=== PATIENT | female | born 1975 | race African-American/Black ===

== ENCOUNTER 2017-09-25 15:51 | Observation (INO) | payer OTHER ==
[2017-09-25] MEDS ORDERED: cefTRIAXone\\ROCEPHIN 1 GM, Syringe 0.4 ML in Sterile Water 9.6 ML SLOW IVP SCH (16:30)
[2017-09-25] MEDS ORDERED: Azithromycin 500 MG in Sodium Chloride 0.9% 250 ML 250 ML IVPB SCH (16:30)
[2017-09-25] MEDS ORDERED: Nitroglycerin 2% Ointment 1 INCH/1 GM Packet TOP PRN (16:54)
[2017-09-25] MEDS ORDERED: Acetaminophen 650 MG Suppository PR PRN (16:54)
[2017-09-25] MEDS ORDERED: Nitroglycerin 0.4 MG TAB (25 Tab Bottle) PO PRN (16:54)
[2017-09-25] MEDS ORDERED: Acetaminophen 325 MG TAB PO PRN (16:54)
[2017-09-25] MEDS ORDERED: Ondansetron HCl/PF 4 MG/2 ML Vial IVP PRN (16:54)
[2017-09-25] MEDS ORDERED: Ondansetron ODT 4 MG TAB PO PRN (16:54)
[2017-09-25] MEDS ORDERED: Calcium Carbonate 500 MG ChewTAB PO PRN (16:54)
[2017-09-25 17:07] LABS: Troponin I Less than 0.010 ng/mL (< 0.028)
[2017-09-25] MEDS ORDERED: Ondansetron HCl/PF 4 MG/2 ML Vial ONE (17:40)
[2017-09-25] MEDS ORDERED: Albuterol Sulfate 2.5 mg/3 ml Neb NEB PRN (17:43)
[2017-09-25] MEDS ORDERED: Mag-Al 1200 mg/1200 mg/30 ML UDCUP PO PRN (17:44)
[2017-09-25] MEDS ORDERED: Mag-Al 1200 mg/1200 mg/30 ML UDCUP PO SCH (17:45)
[2017-09-25] MEDS ORDERED: Ketorolac Tromethamine 30 MG/ML VIAL IVP PRN (17:49)
[2017-09-25] MEDS ORDERED: diphenhydrAMINE 50 MG/ML VIAL IVP SCH (18:00)
[2017-09-25] MEDS ORDERED: Metoclopramide HCl 10 MG/2 ML VIAL IVP SCH (18:00)
[2017-09-25] MEDS ORDERED: Ketorolac Tromethamine 30 MG/ML VIAL IVP SCH (18:00)
[2017-09-25 18:42] VITALS: BMI 50.3
[2017-09-25 19:41] LABS: Hemoglobin A1c 5.4 % (4.0-6.0)
[2017-09-25] MEDS ORDERED: Simethicone Chewable 80 MG TAB PO PRN (19:48)
[2017-09-25] MEDS ORDERED: Morphine 4 MG/ML VIAL SLOW IVP PRN (19:52)
[2017-09-25 19:58] LABS: Troponin I Less than 0.010 ng/mL (< 0.028)
[2017-09-25] MEDS ORDERED: Fentanyl 100 MCG/2 ML VIAL SLOW IVP SCH (20:00)
[2017-09-25] MEDS: Mag-Al 1200 mg/1200 mg/30 ML UDCUP PO SCH (20:16)
[2017-09-25] MEDS: Docusate 100 MG CAP PO SCH (20:19)
[2017-09-25] MEDS: Acetaminophen 500 MG TAB PO PRN (20:20)
[2017-09-25] MEDS: Famotidine 20 MG TAB PO SCH (20:20)
[2017-09-25 22:39] LABS: Troponin I Less than 0.010 ng/mL (< 0.028)
[2017-09-26] MEDS: hydrALAZINE 20 MG/ML VIAL SLOW IVP PRN ×2 (00:44→04:36)
[2017-09-26] MEDS: Mag-Al 1200 mg/1200 mg/30 ML UDCUP PO SCH ×4 (02:18→20:48)
[2017-09-26] MEDS: Acetaminophen 500 MG TAB PO PRN ×2 (04:36→09:50)
[2017-09-26 05:43] LABS: ALT (SGPT) 29 U/L (8-55); AST (SGOT) 34 U/L (5-34); Alkaline Phosphatase 136 U/L (40-150); Anion Gap 12 mmol/L (10-20); BUN (Urea Nitrogen) 9 mg/dL (7.0-18.7); Bilirubin, Total 0.4 mg/dL (0.2-1.2); Calc. Creatinine Clearance 222 mL/min (70-130); Calcium 8.9 mg/dL (7.8-10.44); Carbon Dioxide 21 mmol/L (22-29); Chloride 106 mmol/L (98-107); Cholesterol 127 mg/dl (< 200 Desired); Estimated GFR-MDRD Greater than 90; Globulin 4.1 g/dL (2.4-3.5); LDL Cholesterol, Calculated 78 mg/dL; Protein, Total 7.6 g/dL (6.0-8.3)
[2017-09-26 06:22] LABS: Band 2 % (5-11); Burr Cells SLIGHT = 2-5 cells (100X) (0-1/hpf); Hematocrit 43.2 % (36.0-47.0); Metamyelocyte 1 % (0-0); Neutrophil 54 % (42-75); Reactive Lymphocytes 5 % (0-10); White Blood Cell (WBC) Count 4.1 thou/uL (4.8-10.8)
[2017-09-26] MEDS: Famotidine 20 MG TAB PO SCH ×2 (08:51→20:48)
[2017-09-26] MEDS: Docusate 100 MG CAP PO SCH ×2 (08:51→20:48)
[2017-09-26] MEDS: Aspirin 325 MG TAB PO SCH (08:51)
[2017-09-26] MEDS ORDERED: Lisinopril 10 MG TAB PO SCH (09:00)
--- NOTE | 2017-09-26 12:00 | HP-2 ---
DATA OF ENCOUNTER: 09/25/2017 TIME OF ENCOUNTER: 1645 hours. CODE STATUS: FULL. PRIMARY CARE PHYSICIAN: None, City call. ATTENDING: Dr. Whitmore. PGY-3: Dr. Belinda Rosenthal. HISTORIAN: Patient. CHIEF COMPLAINT: Chest pain. HISTORY OF PRESENT ILLNESS: This is a 42-year-old -Bul[place] female with recent diagnosis of hypertension, who has been poorly compliant on new p.o. medications to include unknown dose of metoprolol, presented 2 days of persistent left-sided chest pain, it is associated with shortness of breath and nausea, but no diaphoresis or dizziness. States that she typically has a baseline left-sided chest, neck to shoulder musculoskeletal pain, which is typically tender to palpation and it is relieved with lifting her breast; however, this pain appears to be different per patient history. It initially began at rest and has been bothersome, especially given her mother's recent passing from a massive [place]. The patient does also endorse cough and shortness of breath intermittently for the past 1-1/2 years. Denies any true fevers, but does complain of some subjective chills off and on. She presented to [place] ED with the symptoms and had a laboratory workup found to have an elevated D-dimer of 0.[address] PE was performed of the chest. See H&P for further information. In the ER, the patient was given nitro and amlodipine. PAST MEDICAL HISTORY: Significant for: 1. Hypertension, recently diagnosed, which appears to be uncontrolled. 2. Thyroid mass, which is biopsied in 2013. PAST SURGICAL HISTORY: Significant for thyroid biopsy in 2013, which at that time she was told it was benign, as well as x3 with bilateral tubal ligation. ALLERGIES: No known drug allergies. MEDICATIONS: Metoprolol with unknown dose taken b.i.d. with the patient poorly complaint. FAMILY HISTORY: Significant for CAD on both maternal and paternal sides, both of which are at approximately age 60 due to massive [place]. Family history also significant for diabetes and hypertension, as well as maternal history of autoimmune disease and rheumatoid disease to include scleroderma and Raynaud's phenomenon. SOCIAL HISTORY: Significant for 1 pack per day for approximately 20 years. The patient does also endorse some occasional alcohol use and prior marijuana abuse. OCCUPATION: The patient is currently working and is . Denies any ill contacts. REVIEW OF SYSTEMS: A complete 10-point review of systems was performed and found to be positive per HPI. Additionally, the patient does endorse cough, chest congestion, and shortness of breath as well as subjective fevers and chills as stated prior in the HPI. PHYSICAL EXAMINATION: VITAL SIGNS: Blood pressure of 177/89, pulse 83, respirations 25, T-max 98.4, pulse oximetry 95% on room air, current weight 127 kilograms. GENERAL: Alert, oriented x3, no acute distress, obese, appropriately interactive female. EYES: Pupils equally round and reactive to light. Extraocular muscles intact. Conjunctivae within normal limits. ENT: Within normal limits. Nasal mucosa within normal limits. HEAD: Normocephalic, atraumatic. NECK: Supple, no lymphadenopathy, minimal thyromegaly; however, this is limited secondary to body habitus. No noted carotid bruits. CARDIOVASCULAR: Regular rate and rhythm with 2-3/6 systolic ejection murmur, no gallops. Radial and pedal pulses are intact and equal at 2+/4. RESPIRATORY: Normal effort, no retractions. The patient does have diffuse faint end expiratory wheezes in all lung hicks. ABDOMEN: Soft. Bowel sounds are active in all 4 quadrants; however, minimally tender in the epigastrium; however, exam limited secondary to body habitus. SKIN: Warm and dry, no cyanosis, no noted lesions. EXTREMITIES: No clubbing, no cyanosis, no edema. MUSCULOSKELETAL: Structure, tone and strength is grossly intact as well. NEUROLOGIC: No focal deficits. Sensation within normal limits. Cranial nerves are intact. GCS 15. PSYCHIATRIC: Appropriate. LABORATORY DATA AND IMAGIN. CBC: White blood cells 5.4, hemoglobin 13.6, hematocrit 40.9, platelets 303 , 59% neutrophils. 2. CMP: Sodium 139, potassium 4.3, chloride 104, bicarbonate 25, BUN 8, creatinine 0.88, GFR of 86, glucose 94, calcium 9.2, protein 7.9, albumin 3.8, AST 29, ALT 28, alkaline phosphatase 145, bilirubin 0.5. D-dimer 0.5. BNP 46. TSH 0.88. Flu negative. EKG: Normal sinus rhythm with left axis deviation and nonspecific ST changes. Chest x-ray shows no acute disease. CT angiogram of the chest performed secondary to elevated D-dimer at 0.5 showed bilateral reactive hilar lymphadenopathy with pulmonary nodular infiltrate at bases and right thyroid lobe enlarging mass at 5.9 cm larger in prior exam. ASSESSMENT AND PLAN: A 42-year-old -Bul[place] female with past medical history significant for hypertension and significant family history of coronary artery disease presents with: 1. Atypical chest pain. We will work the patient up for ACS. Initial troponin negative. EKG shows nonspecific occasional ischemic changes, but nothing acute. We will trend EKGs and cardiac enzymes, risk stratify with laboratory results and likely perform stress test, current heart score is 3. The patient has not had prior cardiovascular workup. We will treat symptomatically, order stress in the morning, n.p.o. at midnight with no beta blockers and caffeine. 2. Atypical pneumonia. This is secondary to clinical signs and symptoms as well as CT angiogram finding with nodular pulmonary infiltrates bilaterally and hilar lymphadenopathy. We will treat empirically with Rocephin and azithromycin I have started in the emergency department; however, patient is not septic in appearance. We will work the patient up for possible sarcoidosis given the appearance of CT, patient's body habitus as well as family history of autoimmune and rheumatologic illness. 3. Hypertension, uncontrolled. Start Norvasc. We will hold beta darrion at this time pending stress test. The patient would likely to have better blood pressure control with calcium channel darrion given her ethnicity. 4. Orthopnea with strangulation. This is likely secondary to mass effect from the thyroid mass, which is enlarging prior after a study performed in 2013. Recommend ENT consult upon discharge. We will consider CT of the neck and soft tissue to rule out further mass effect. No dyspnea or dysphagia, therefore can likely be managed outpatient as patient is funded. 5. Tobacco abuse. Counseled regarding cessation. 6. Morbid obesity. Counseled regarding weight loss. DISPOSITION AND LENGTH OF HOSPITAL STAY: 1-2 days under observation status. Symptomatic medications will be provided. History and physical as well as management was discussed with Dr. Chelita Whitmore who agrees with the assessment and plan. ANA MARIA
--- NOTE | 2017-09-26 12:22 | PDOC.FM ---
- Subjective Subjective: Patient is doing well this morning. Does report some upper airway congestion and cold symptoms within the last couple of days, but denies cough, fever, weight loss, and SOB. Patient is a smoker and recently increased her smoking to 1 ppd after her mom 1 month ago. Patient reports she is trying to be better at managing her HTN, but has not been good at taking her medication daily. She does not have a PCP. - Objective MAR Reviewed: Yes Vital Signs & Weight: Vital Signs (12 hours) Temp Pulse Resp BP BP Pulse Ox 09/26/17 08:50 98.3 F 88 18 09/26/17 08:36 98.3 F 88 18 177/96 H 95 09/26/17 06:42 100 09/26/17 06:41 91 16 100 09/26/17 05:55 184/103 H 09/26/17 05:46 73 184/103 H 09/26/17 04:36 98.4 F 87 20 207/103 H 96 09/26/17 01:35 77 141/93 H 09/26/17 00:52 100 09/26/17 00:44 73 181/85 H Weight Weight 141.294 kg I&O: 09/25/17 09/26/17 09/27/17 06:59 06:59 06:59 Intake Total 360 Output Total 600 400 Balance -240 -400 Result Diagrams: 09/26/17 04:46 09/26/17 04:46 Phys Exam - Physical Examination Constitutional: NAD HEENT: moist MMs, oral pharynx no lesions nasal congestion, malampati 4, no visible erythema noted in oropharynx anterior cervical lymphadenopathy, asymmetric thyroid R>L, estimated 3cm Mild wheezing in RLL, good air movement + transmitted upper airway congestion Cardiovascular: RRR systolic murmur Gastrointestinal: soft, non-tender, no distention, positive bowel sounds Musculoskeletal: no edema, pulses present Neurological: moves all 4 limbs Psychiatric: A&O x 3 Deviation from normal: darkened irregularly shaped areas on legs and arms Dx/Plan (1) Atypical chest pain Code(s): R07.89 - OTHER CHEST PAIN Status: Acute (2) Abnormal finding on CT scan Code(s): R93.8 - ABNORMAL FINDINGS ON DIAGNOSTIC IMAGING OF BODY STRUCTURES Status: Acute (3) Hypertension Code(s): I10 - ESSENTIAL (PRIMARY) HYPERTENSION Status: Acute (4) Fatty liver Code(s): K76.0 - FATTY (CHANGE OF) LIVER, NOT ELSEWHERE CLASSIFIED Status: Acute (5) Hiatal hernia Code(s): K44.9 - DIAPHRAGMATIC HERNIA WITHOUT OBSTRUCTION OR GANGRENE Status: Acute (6) Systolic murmur Code(s): R01.1 - CARDIAC MURMUR, UNSPECIFIED Status: Acute (7) Thyroid nodule Code(s): E04.1 - NONTOXIC SINGLE THYROID NODULE Status: Chronic (8) Atypical pneumonia Code(s): J18.9 - PNEUMONIA, UNSPECIFIED ORGANISM Status: Suspected - Plan Plan: Atypical Chest Pain with Palpitations - Fhx of CAD, mom and dad of CAD in 60's - Current tobacco use - stress test today - continue tele monitoring Pulmonary Infiltrate with bilateral hilar FOUZIA - possible atypical PNA - continue Rocephin and Azithromycin until blood cx negative - CT chest to further evaluate - possible Sarcoidosis - Fhx of autoimmune disorders - RH factor negative, CRP slightly elevated, ESR, LUIZA, ALFRED pending Enlarging thyroid mass with reactive FOUZIA - seen on CTA, enlarged from 2013 - TSH and T4 wnl - Thyroid u/s pending - conisder ENT consult, likely will need to f/u outpatient HTN, uncontrolled - held metoprolol for stress test - started Amlodipine 5mg today - may need to add HCTZ Systolic Murmur - echo pending Fatty Liver - finding on CTA - encourage healthier diet - f/u with PCP Hiatal Hernia - incidental finding, but patient reports hx of GERD sx - Pepcid
[2017-09-26] MEDS ORDERED: Amlodipine 5 MG TAB PO SCH (13:00)
--- NOTE | 2017-09-26 15:04 | ADD-PRG ---
This is an addendum to the note of Dr. Mara Landry. Ms. Castro is a 42-year-old black female patient who was admitted with atypical chest pain that does not sound cardiac in origin. However, thus far in her workup, we have found multiple pulmonary nodu les as well as some hilar lymphadenopathy. She was also noted on CT of the chest to have a large thy roid nodule, which will need further evaluation. We will proceed with an ultrasound of the neck as h er TSH was normal. We will proceed with a chest CT as she is a heavy smoker as well. Further workup will depend on these results.
--- NOTE | 2017-09-26 15:15 | ULT ---
THYROID ULTRASOUND: Date: 09/26/17 HISTORY: Enlarging thyroid nodule. COMPARISON: Thyroid biopsy that was performed 07/22/15. FINDINGS: Real-time imaging of the right and left lobes of the thyroid were performed. The right lobe measures 2.9 x 3.2 x 6.2 cm. The left lobe measures 1.9 x 1.7 x 4.2 cm. A large right lobe thyroid nodule is noted. It measures 3.1 x 3.7 x 5.3 cm. Exact measurements from t he thyroid biopsy were not performed, but the nodule appears fairly similar in size. IMPRESSION: Large solitary right lobe thyroid nodule. POS: T[facility]
[2017-09-26] MEDS: cefTRIAXone\\ROCEPHIN 1 GM, Syringe 0.4 ML in Sterile Water 9.6 ML SLOW IVP SCH ×2 (16:26→16:34)
[2017-09-26] MEDS ORDERED: cefTRIAXone\\ROCEPHIN 1 GM in Sodium Chloride 0.9% 100 ML IVPB SCH (16:30)
[2017-09-26] MEDS: Azithromycin 250 MG in Sodium Chloride 0.9% 250 ML 250 ML IVPB SCH (16:36)
--- NOTE | 2017-09-26 17:15 | CT ---
CT CHEST NONCONTRAST: History: Hilar adenopathy. Comparison: 09-25-17 FINDINGS: Large mass within the right paratracheal upper mediastinum descending from the right thyroid lobe is similar in appearance to the prior study. Mediastinal adenopathy is less well visualized with a lack of contrast. Patchy infiltrates at each lung base and small bibasilar parenchymal nodules are not significantly ch anged. There is no pleural fluid or pneumothorax. IMPRESSION: Mediastinal adenopathy, bibasilar infiltrates and small nodules, and the large right upper mediastina l mass are stable compared to the previous exam. No new abnormalities are demonstrated. Findings were called to Dr. Alexis at 1615 hours. Code CR POS: SJ
[2017-09-27] MEDS: Mag-Al 1200 mg/1200 mg/30 ML UDCUP PO SCH ×4 (05:09→20:38)
--- NOTE | 2017-09-27 07:52 | PDOC.FM ---
- Subjective Subjective: Patient reports less chest pain but increased SOB from yesterday. She reports a vague history of asthma that has worsened over the past year, especially when she gets sick. She does report increased head congestion today but denies cough fever or chills. Reports rash for greater than one month that worsens in the sunlight. - Objective MAR Reviewed: Yes Vital Signs & Weight: Vital Signs (12 hours) Temp Pulse Resp BP Pulse Ox 09/27/17 07:13 100 16 09/27/17 04:24 98 09/27/17 04:05 98.4 F 102 H 20 161/101 H 96 09/27/17 00:47 85 16 96 09/26/17 20:45 99.6 F 112 H 20 09/26/17 20:25 99.6 F 112 H 20 167/79 H 94 L Weight Weight 141.294 kg I&O: 09/26/17 09/27/17 09/28/17 06:59 06:59 06:59 Intake Total 360 10 Output Total 600 400 Balance -240 -390 Result Diagrams: 09/26/17 04:46 09/26/17 04:46 Phys Exam - Physical Examination Constitutional: NAD HEENT: moist MMs erythematous oropharynx without lesions anterior cervical lymphadenopathy anterior auscultation with prominent bronchiole sounds, posteriorly CTAB, no wheezing Cardiovascular: RRR, no significant murmur Gastrointestinal: soft, non-tender Musculoskeletal: no edema Neurological: moves all 4 limbs Psychiatric: normal affect, A&O x 3 Deviation from normal: small pinpoint areas of hypopigmentation with surrounging hyperpigmentation -: in irregularly shaped patterns on upper arms and posterior LE Dx/Plan (1) Atypical chest pain Code(s): R07.89 - OTHER CHEST PAIN Status: Acute (2) Abnormal finding on CT scan Code(s): R93.8 - ABNORMAL FINDINGS ON DIAGNOSTIC IMAGING OF BODY STRUCTURES Status: Acute (3) Hypertension Code(s): I10 - ESSENTIAL (PRIMARY) HYPERTENSION Status: Acute (4) Fatty liver Code(s): K76.0 - FATTY (CHANGE OF) LIVER, NOT ELSEWHERE CLASSIFIED Status: Acute (5) Hiatal hernia Code(s): K44.9 - DIAPHRAGMATIC HERNIA WITHOUT OBSTRUCTION OR GANGRENE Status: Acute (6) Thyroid nodule Code(s): E04.1 - NONTOXIC SINGLE THYROID NODULE Status: Chronic (7) Atypical pneumonia Code(s): J18.9 - PNEUMONIA, UNSPECIFIED ORGANISM Status: Ruled-out - Plan Plan: Atypical Chest Pain with Palpitations - Fhx of CAD, mom and dad of CAD in 60's - Current tobacco use - stress test today - echo showed symmetrical LV hypertrophy - continue tele monitoring Pulmonary Infiltrate with bilateral hilar FOUZIA - possible atypical PNA, less likely - will finish course of Rocephin and Azithromycin - possible Sarcoidosis vs. SLE - Fhx of autoimmune disorders - RH factor negative, CRP slightly elevated, ESR wnl, LUIZA, ALFRED elevated, dsDNA elevated - r/o TB with quantiferon gold - consult pulm for possible brochoscopy and biopsy if deemed necessary Enlarging thyroid mass with reactive FOUZIA - seen on CTA, enlarged from 2013 - TSH and T4 wnl - Thyroid u/s reveals solid R nodule measuring 3x4x5 - Spoke with Dr. Lewis who would like to see her outpatient for f/u HTN, uncontrolled - held metoprolol for stress test - started Amlodipine 10mg today - HCTZ 12.5mg BID Fatty Liver - finding on CTA - encourage healthier diet - f/u with PCP Hiatal Hernia - incidental finding, but patient reports hx of GERD sx - Pepcid
[2017-09-27] MEDS: Famotidine 20 MG TAB PO SCH ×2 (08:05→20:43)
[2017-09-27] MEDS: Docusate 100 MG CAP PO SCH ×2 (08:05→20:44)
[2017-09-27] MEDS: Aspirin 325 MG TAB PO SCH (08:05)
[2017-09-27] MEDS ORDERED: Amlodipine 5 MG TAB PO SCH ×2 (09:00)
[2017-09-27] MEDS ORDERED: Hydrochlorothiazide 25 MG TAB PO SCH ×3 (09:00→21:00)
[2017-09-27 09:19] LABS: U1RNP/snRNP IGG Autoabs 0.2 AI (0.0-0.9)
[2017-09-27] MEDS: hydrALAZINE 20 MG/ML VIAL SLOW IVP PRN (13:22)
[2017-09-27] MEDS: Acetaminophen 500 MG TAB PO PRN ×2 (13:31→20:46)
--- NOTE | 2017-09-27 14:40 | ADD-PRG ---
ADDENDUM DATE OF SERVICE: 09/27/2017 Ms. Castro is resting comfortably in bed. As it turns out, she has a positive ALFRED and a positive do uble-stranded DNA as well as a photosensitivity rash. Although she has lung findings, the most stand ing disease is a significant hilar lymphadenopathy. I still feel we should rule out sarcoid, as she does not meet all criteria for lupus. We will consult Pulmonology to consider bronchoscopy and biops y.
[2017-09-27] MEDS ORDERED: Regadenoson 0.4 MG/5 ML SYRINGE ONE (15:25)
[2017-09-27] MEDS ORDERED: Lisinopril 10 MG TAB PO SCH (16:30)
[2017-09-27] MEDS: cefTRIAXone\\ROCEPHIN 1 GM, Syringe 0.4 ML in Sterile Water 9.6 ML SLOW IVP SCH (16:55)
[2017-09-27] MEDS: Azithromycin 250 MG in Sodium Chloride 0.9% 250 ML 250 ML IVPB SCH (16:55)
[2017-09-27] MEDS: Hydrochlorothiazide 25 MG TAB PO SCH (20:43)
[2017-09-27] MEDS: Lisinopril 10 MG TAB PO SCH (20:44)
[2017-09-27] MEDS: guaiFENesin ER 600 MG TAB PO SCH (20:44)
[2017-09-28] MEDS: Mag-Al 1200 mg/1200 mg/30 ML UDCUP PO SCH ×2 (02:48→10:57)
--- NOTE | 2017-09-28 06:42 | PDOC.FM ---
- Subjective Subjective: Patient reports she is feeling better today. Chest pain and feeling of palpitations has all but resolved. SOB, head congestion, and wheezing improved from yesterday. - Objective MAR Reviewed: Yes Vital Signs & Weight: Vital Signs (12 hours) Temp Pulse Resp BP Pulse Ox 09/28/17 04:07 98.7 F 86 16 143/70 H 97 09/28/17 00:24 99 16 97 09/28/17 00:07 98.6 F 83 16 141/78 H 95 09/27/17 20:34 98.6 F 97 20 175/107 H 95 09/27/17 19:37 97 16 98 09/27/17 19:30 98.6 F 97 20 Weight Weight 137.348 kg I&O: 09/26/17 09/27/17 09/28/17 06:59 06:59 06:59 Intake Total 360 10 420 Output Total 426 772 8503 Balance -240 -390 -780 Result Diagrams: 09/26/17 04:46 09/26/17 04:46 Phys Exam - Physical Examination Constitutional: NAD HEENT: PERRLA, moist MMs, oral pharynx no lesions cervical adenopathy expiratory wheezing in bases Cardiovascular: RRR, no significant murmur Gastrointestinal: soft, non-tender Musculoskeletal: no edema, pulses present Neurological: normal sensation, moves all 4 limbs Psychiatric: normal affect, A&O x 3 Deviation from normal: small nodules beneath the skin on b/l anterior legs Dx/Plan (1) Sarcoidosis Code(s): D86.9 - SARCOIDOSIS, UNSPECIFIED Status: Suspected (2) Atypical chest pain Code(s): R07.89 - OTHER CHEST PAIN Status: Acute (3) Abnormal finding on CT scan Code(s): R93.8 - ABNORMAL FINDINGS ON DIAGNOSTIC IMAGING OF BODY STRUCTURES Status: Acute (4) Hypertension Code(s): I10 - ESSENTIAL (PRIMARY) HYPERTENSION Status: Acute (5) Fatty liver Code(s): K76.0 - FATTY (CHANGE OF) LIVER, NOT ELSEWHERE CLASSIFIED Status: Acute (6) Hiatal hernia Code(s): K44.9 - DIAPHRAGMATIC HERNIA WITHOUT OBSTRUCTION OR GANGRENE Status: Acute (7) Thyroid nodule Code(s): E04.1 - NONTOXIC SINGLE THYROID NODULE Status: Chronic (8) Atypical pneumonia Code(s): J18.9 - PNEUMONIA, UNSPECIFIED ORGANISM Status: Ruled-out - Plan Plan: Atypical Chest Pain with Palpitations - Fhx of CAD, mom and dad of CAD in 60's - Current tobacco use - stress test today - echo showed symmetrical LV hypertrophy and mild diastolic dysfunction - continue tele monitoring Pulmonary Infiltrate with bilateral hilar FOUZIA - possible atypical PNA, less likely - will finish course of Rocephin and Azithromycin - possible Sarcoidosis vs. SLE - Fhx of autoimmune disorders - RH factor negative, CRP slightly elevated, ESR wnl, LUIZA pending, ALFRED elevated, dsDNA elevated - r/o TB with quantiferon gold outpatient - Pulmonolgist outpatient for biopsy Enlarging thyroid mass with reactive FOUZIA - seen on CTA, enlarged from 2013 - TSH and T4 wnl - Thyroid u/s reveals solid R nodule measuring 3x4x5 - Spoke with Dr. Lewis who would like to see her outpatient for f/u HTN, uncontrolled - started Amlodipine 10mg today - HCTZ 12.5mg BID - Lisinopril 10mg BID Fatty Liver - finding on CTA - encourage healthier diet - f/u with PCP Hiatal Hernia - incidental finding, but patient reports hx of GERD sx - Pepcid Dispo: likely d/c with close f/u if stress negative.
[2017-09-28] MEDS ORDERED: predniSONE 20 MG TAB PO SCH (08:00)
[2017-09-28] MEDS ORDERED: Amlodipine 10 MG TAB PO SCH (09:00)
--- NOTE | 2017-09-28 10:34 | NM ---
NUCLEAR MEDICINE CARDIAC MYOCARDIAL PERFUSION SPECT EJECTION FRACTION STUDY WALL MOTION CINE: DATE: 09/27/17. HISTORY: A 42-year-old female with chest pain. TECHNIQUE: Number of days: 2. Rest study: Tc99m sestamibi (Cardiolite) dose: 28.4 mCi. Pharmacologic stress: adenosine dose: [] Stress study: Tc99m sestamibi (Cardiolite) dose: 33.0 mCi. FINDINGS: CARDIAC (MYOCARDIAL PERFUSION) SPECT There are no reversible myocardial perfusion defects. EJECTION FRACTION STUDY EF = 67% WALL MOTION CINE No definite focal wall motion abnormality identified. IMPRESSION: No evidence of reversible ischemia. ANTOINETTE Escobar POS: ELIESER
[2017-09-28] MEDS: Lisinopril 10 MG TAB PO SCH (10:58)
[2017-09-28] MEDS: Famotidine 20 MG TAB PO SCH (10:58)
[2017-09-28] MEDS: Hydrochlorothiazide 25 MG TAB PO SCH (10:58)
[2017-09-28] MEDS: guaiFENesin ER 600 MG TAB PO SCH (10:58)
[2017-09-28] MEDS: Aspirin 325 MG TAB PO SCH (10:58)
[2017-09-28] MEDS: Docusate 100 MG CAP PO SCH (10:59)
[2017-09-28 12:07] VITALS: BP 161/80; TEMP 98.1
--- NOTE | 2017-09-28 14:23 | ADD-PRG ---
ADDENDUM: 09/28/2017 This is an addendum to the note of Dr. Mara Landry. Ms. Castro's stress Myoview test was negative for reversible ischemia. She will be discharged today to follow up as an outpatient with the commercial accountant to consider the possibility of doing bronchosco py for her currently unexplained hilar adenopathy. I reviewed the criteria for the diagnosis of SLE and the patient meets only 3 of 11 criterion. I still believe the sarcoidosis is a likely diagnosis, but we will proceed with the pulmonary evaluation for definitive diagnosis. We explained all this t o Ms. Castro. We will make arrangements for her to see the commercial accountant.
--- NOTE | 2017-09-30 12:06 | DIS-2 ---
DATE OF ADMISSION: 09/25/2017 DATE OF DISCHARGE: 09/28/2017 RESIDENT: Mara Landry D.O. ADMITTING ATTENDING: Dr. Chelita Whitmore. DISCHARGE ATTENDING: Dr. Wyatt Wharton. CONSULTATIONS: None. PROCEDURES/IMAGIN. Echocardiogram, E/A flow reversal noted suggestive of diastolic dysfunction, ejection fraction 55 %-60%, moderate concentric left ventricular hypertrophy. 2. Chest CT - mediastinal adenopathy, bibasilar infiltrates and small nodules, large right upper med iastinal mass, stable compared to previous exam. No new abnormalities. 3. Thyroid ultrasound - large solitary right lobe thyroid nodule. 4. Nuclear medicine stress test - no evidence of reversible ischemia. PRIMARY DIAGNOSIS: Atypical chest pain, likely secondary to sarcoidosis. SECONDARY DIAGNOSES: 1. Hypertension. 2. Fatty liver disease. 3. Hiatal hernia. 4. Thyroid nodule. 5. Elevated ALFRED. 6. Elevated double stranded DNA antibody. DISCHARGE MEDICATIONS: 1. Prednisone 20 mg p.o. q.a.m. x5 days. 2. Lisinopril 10 mg p.o. b.i.d. 3. Hydrochlorothiazide 25 mg p.o. b.i.d. 4. Azithromycin 250 mg p.o. daily x1 more day to finish out a 5-day course. 5. Amlodipine 10 mg p.o. daily. 6. Proventil HFA 1 puff inhalation q.4 hours p.r.n. DISCONTINUED MEDICATIONS: Metoprolol. HISTORY OF PRESENT ILLNESS AND HOSPITAL COURSE: A 42-year-old -Citizen Of [place] female with a recent diagnosis of hypertension, who has been poorly compliant on new p.o. medications, presented with 2 da ys of persistent left-sided chest pain associated with shortness of breath and nausea. She reported that at baseline, she does have left-sided chest pain with neck and shoulder musculoskeletal involvem ent, which is typically tender to palpation. It is usually relieved with lifting her breast; however , this pain was different than that. Patient has significant family history of coronary artery disea se including her mother who recently passed from a massive MS as well as CAD in her father. Patient also reported cough and shortness of breath intermittently for the past 1 to 1-1/2 years, reports has been diagnosed with asthma in the past. She originally went to [place] ED with the symptoms an d workup was found to have an elevated D-dimer of 0.5. On admission, blood pressure was significantl y elevated at 177/89, and on exam was also found to have minimal thyromegaly, otherwise exam was marika gn. On chest x-ray, perihilar lymphadenopathy was seen, a chest CT was done to further evaluate show ing findings described above. With the concern for sarcoidosis, rheumatoid panel was drawn which rev ealed positive ALFRED and double stranded DNA antibody positive. Symptoms along with presentation and x -ray findings are more consistent with sarcoidosis and patient only met 3 of 11 criteria for SLE. At this time, it is not definitive what disease process is causing this. The patient was discussed wit h membership sales manager, Dr. Guevara and will need bronchoscopy with biopsy outpatient to make definitive diagn osis. Also, on imaging, a thyroid nodule was found that was biopsied in the past by Dr. Lewis. Dr. Mulugeta horner was called and recommended outpatient follow up for the enlarging mass, since at this time, it is asymptomatic. A TSH as well as T4 were checked and found to be within normal limits. In regards to her chest pain, an echo as well as a nuclear medicine stress test was done. Nuclear me dicine stress test was negative for ischemia and the echo revealed diastolic CHF and concentric left ventricular hypertrophy indicative of poor hypertension control. This was very evident during her st ay. Patient came into the hospital only taking metoprolol 25 mg b.i.d., which she was noncompliant w [facility]. Our team decided to switch her medication to a more appropriate medication and added hydrochlor othiazide and amlodipine. It was found that the patient was not controlled on either of these medica tions, so lisinopril was added as well. Her pressures were much better controlled into the normal ra nge with these medication adjustments. Patient was also put on oral prednisone 20 mg x5 days for possible flare from either sarcoidosis or l upus. It was recommended that she get the biopsy from Dr. Guevara, establish care with a primary care physician and then likely will need a inspector balance bridge for management purposes. DISPOSITION: Stable. DISCHARGE INSTRUCTIONS: 1. Location: Home. 2. Diet: Heart healthy with low sodium. 3. Activity: As tolerated. 4. Followup: Follow up with established PCP in 1 week, Dr. Guevara in 1-2 weeks for bronchoscopy and biopsy, Dr. Parrent in 1-2 weeks for thyroid nodule biopsy.
--- NOTE | 2017-10-01 07:32 | NM ---
NUCLEAR MEDICINE CARDIAC MYOCARDIAL PERFUSION SPECT EJECTION FRACTION STUDY WALL MOTION CINE: DATE: 09/27/17. HISTORY: A 42-year-old female with chest pain. TECHNIQUE: Number of days: 2. Rest study: Tc99m sestamibi (Cardiolite) dose: 28.4 mCi. Pharmacologic stress: Lexiscan dose: 0.4 mg. Stress study: Tc99m sestamibi (Cardiolite) dose: 33.0 mCi. FINDINGS: CARDIAC (MYOCARDIAL PERFUSION) SPECT There are no reversible myocardial perfusion defects. EJECTION FRACTION STUDY EF = 67% WALL MOTION CINE No definite focal wall motion abnormality identified. IMPRESSION: No evidence of reversible ischemia. ANTOINETTE Escobar POS: [facility]
--- NOTE | 2017-10-26 13:35 | STRESS ---
Acquisition Time: 2017-09-27 09:07:26 Total Exercise Time: 00:01:00 Test Indications: CHEST PAIN Medications: Protocol: LEXISCAN Max HR: 121 BPM 67% of Pred: 180 BPM Max BP: 144/096 mmHG Max Work Load: 1.0 METS RESTING ECG: NORMAL SINUS RHYTHM AT 86 BPM SYMPTOMS: CHEST/STOMACH TIGHTNESS, HEADACHE, SOB APPROPRIATE BLOOD PRESSURE RESPONSE FOR LEXISCAN ECTOPY: NONE ECG RESPONSE: NO SIGNIFICANT CHANGES INTERPRETATION: NEGATIVE ECG/AWAIT NUCLEAR IMAGES FOR DEFINITIVE DIAGNOSIS Confirmed by TIERRA STAPLES MD ([id number]) on 10/26/2017 1:34:55 PM Referred By: Lianet JONES Confirmed By:TIERRA STAPLES MD
--- NOTE | 2017-10-29 13:56 | EKG ---
Test Reason : Blood Pressure : / mmHG Vent. Rate : 083 BPM Atrial Rate : 083 BPM P-R Int : 174 ms QRS Dur : 086 ms QT Int : 388 ms P-R-T Axes : 054 -06 035 degrees QTc Int : 455 ms Normal sinus rhythm Nonspecific T wave abnormality Abnormal ECG Leftward axis Confirmed by REJI KENYON, ROBERTO ([id number]), editor in chief newspaper JOSE JUAN CANO ([id number]) on 10/29/2017 1:56:15 PM Referred By: Confirmed By:ROBERTO MENDOZA MD
== END 2017-09-28 15:14 | disposition home or self-care (01) ==
LOC: ERS 15:51 → 2SW 17:59
PROVIDERS: ADMIT Family Medicine; ATTEND Family Medicine
DX: R07.89 Other chest pain (principal); J18.8 Other pneumonia, unspecified organism; I10 Essential (primary) hypertension; R06.01 Orthopnea; F17.210 Nicotine dependence, cigarettes, uncomplicated; E66.01 Morbid (severe) obesity due to excess calories; Z68.42 Body mass index [BMI] 45.0-49.9, adult; Z88.5 Allergy status to narcotic agent; Z98.51 Tubal ligation status; Z98.890 Other specified postprocedural states
CPT/HCPCS: 36415; 71250; 76536; 78452; 80053; 80061; 82164; 83036; 84439; 84443; 85025; 85652; 86038; 86140; 86430; 93005; 93010; 93017; 93306; 94640; 94760; 96365; 96367; 96375; 96376; A4216; A9500; G0378; J0360; J0456; J0696; J1885; J2405; J2785; J7050; J7506; J7611; J7620

== ENCOUNTER 2018-09-22 12:48 | Outpatient (CLI) | payer OTHER ==
--- NOTE | 2018-09-22 15:26 | RAD ---
CHEST TWO VIEWS: History: Dyspnea. Comparison: 07-04-18 FINDINGS: Heart size and mediastinum are within normal limits. The lungs are clear of any infiltrative process. No bony findings. IMPRESSION: No active intrathoracic disease. Stable exam. POS: [facility]
== END 2018-09-22 12:49 | disposition home or self-care (01) ==
LOC: RAD 12:48
PROVIDERS: ATTEND Internal Medicine Critical Care Medicine
DX: R06.00 Dyspnea, unspecified (principal)
CPT/HCPCS: 71046

== ENCOUNTER 2018-10-26 19:30 | Outpatient (CLI) | payer OTHER | END 2018-10-26 19:31 | disposition home or self-care (01) | LOC: SLEEPLAB 19:30 | PROVIDERS: ATTEND Internal Medicine Critical Care Medicine | DX: G47.33 Obstructive sleep apnea (adult) (pediatric) (principal); R53.83 Other fatigue; I10 Essential (primary) hypertension | CPT/HCPCS: 95810 ==

== ENCOUNTER 2019-07-23 19:30 | Outpatient (CLI) | payer OTHER | END 2019-07-23 19:31 | disposition home or self-care (01) | LOC: SLEEPLAB 19:30 | PROVIDERS: ATTEND Internal Medicine Critical Care Medicine | DX: G47.33 Obstructive sleep apnea (adult) (pediatric) (principal); R53.83 Other fatigue; I10 Essential (primary) hypertension | CPT/HCPCS: 95811 ==

== ENCOUNTER 2019-08-17 12:06 | Emergency (ER) | payer OTHER ==
[2019-08-17] MEDS ORDERED: Amlodipine 5 MG TAB ONE ×2 (12:49→14:38)
[2019-08-17] MEDS ORDERED: Hydrochlorothiazide 25 MG TAB PO SCH (13:00)
--- NOTE | 2019-08-17 13:27 | ULT ---
TRANSABDOMINAL AND ENDOVAGINAL PELVIC ULTRASOUND: HISTORY: Pelvic pain. COMPARISON: None. TECHNIQUE: Transabdominal and endovaginal imaging of the pelvis performed. FINDINGS: Limited evaluation due to pain and body habitus. No obvious masses or fluid in the left or right adnexa. Suboptimal evaluation of the uterus. Grossly, the uterus measures 5.1 x 12.8 x 7.6 cm. There does appear to be heterogeneity in the lower uterine segment, measuring 2.4 cm. There is a slig htly more hypoechoic focus in the endometrial canal at the level uterine fundus measuring 1.8 cm. IMPRESSION: Limited evaluation. Hypoechogenicity in the endometrial canal and heterogeneous echotexture in the lo wer uterine segment. Findings correspond to a recent CT. Consider further evaluation with MEDICAL EDITOR consultation as well as pelvic MRI. CODE T Transcribed Date/Time: 08/17/2019 1:53 PM
[2019-08-17] MEDS ORDERED: HYDROcodone/Acetaminophen 5/325 mg Tablet ONE (14:50)
== END 2019-08-17 14:53 | disposition home or self-care (01) ==
LOC: ERS 12:06
DX: N93.8 Other specified abnormal uterine and vaginal bleeding (principal); E66.9 Obesity, unspecified; I10 Essential (primary) hypertension; F32.9 Major depressive disorder, single episode, unspecified; F17.210 Nicotine dependence, cigarettes, uncomplicated; Z79.899 Other long term (current) drug therapy
CPT/HCPCS: 76856

== ENCOUNTER 2019-09-16 09:25 | Outpatient (CLI) | payer OTHER ==
[2019-09-16 17:01] LABS: Hemoglobin 11.2 g/dL (12.0-16.0); Mean Corpuscular Hemoglobin 23.5 pg (27.0-31.0); Mean Corpuscular Volume 73.5 fL (78.0-98.0); Mean Platelet Volume 7.1 fL (7.4-10.4); Platelet Count 325 thou/uL (130-400); RBC Distribution Width 15.3 % (11.5-14.5); Red Blood Cell (RBC) Count 4.75 mill/uL (4.20-5.40); White Blood Cell (WBC) Count 4.3 thou/uL (4.8-10.8)
[2019-09-16 17:21] LABS: Anion Gap 12 mmol/L (10-20); BUN (Urea Nitrogen) 9 mg/dL (7.0-18.7); Calc. Creatinine Clearance 0 mL/min (70-130); Calcium 8.8 mg/dL (7.8-10.44); Carbon Dioxide 26 mmol/L (22-29); Chloride 103 mmol/L (98-107); Estimated GFR-MDRD 90; Glucose 87 mg/dL (70-105); Potassium 4.4 mmol/L (3.5-5.1); Sodium 137 mmol/L (136-145)
== END 2019-09-16 09:26 | disposition home or self-care (01) ==
LOC: LABBT 09:25
PROVIDERS: ATTEND Obstetrics & Gynecology
DX: Z01.818 Encounter for other preprocedural examination (principal); N92.0 Excessive and frequent menstruation with regular cycle; N94.6 Dysmenorrhea, unspecified; N80.0 Endometriosis of uterus
CPT/HCPCS: 80048; 85027; 86850; 86900; 86901; 93005; 93010

== ENCOUNTER 2019-09-21 06:48 | Observation (INO) | payer OTHER ==
[2019-09-16 16:32] VITALS: BMI 51.5
--- NOTE | 2019-09-17 07:39 | HP ---
She is scheduled for surgery on 09/21/2019. HISTORY OF PRESENT ILLNESS: Ms. Amado is a 44-year-old female with prior section x3 and tubal ligation, has had a long history of very heavy and painful menstrual cycles. She uses nonsteroidals with no improvement and it is debilitating at time. She has been anemic in the past due to the heavy flow, where she saturates a pad in less than an hour. She has had a recent pelvic ultrasound and CAT scan in the emergency room on August 17 of this year due to pelvic pain on her menstrual cycle, which showed her uterus to measure 5.1 x 12.8 x 7.6 cm. No adnexal masses were seen. She has also been evaluated for obstructive sleep apnea moderate with Dr. Clancy and has been down given a CPAP device at 16 cm water pressure. This has improved her apneic issues. Most recent hematocrit while she has been taking iron is 37.6% as of 08/17/2019. PAST MEDICAL HISTORY: Tobacco smoker for 24 years. She has chronic hypertension, obstructive sleep apnea, depression and prior goiter in 07/2018. PAST SURGICAL HISTORY: Tubal ligation, section x3. OB HISTORY: G3, P3, with x3 and tubal ligation. MERCHANDISING EXECUTION ASSOCIATE HISTORY: She had normal Pap smear recently in July 2018 with negative Pap smear and negative HPV. She also had endometrial biopsy for evaluation of menorrhagia recently August 24, 2019, which was benign. FAMILY HISTORY: Significant for COPD in her mother, diabetes, heart failure, and asthma. CURRENT MEDICATIONS: 1. Hydrochlorothiazide 25 mg tablet daily. 2. Lisinopril 10 mg tablet daily. 3. Amlodipine 10 mg tablet daily. 4. Cyclobenzaprine 10 mg q.8 hours p.r.n. back pain. 5. Tramadol 50 mg q.6 hours p.r.n. pain and dysmenorrhea. ALLERGIES: SHE HAS ALLERGIES REPORTED TO MORPHINE. PHYSICAL EXAMINATION: VITAL SIGNS: Her weight is 319 pounds, pulse is 94, O2 saturation on room air 99%, respiration 18, blood pressure 130/92. HEENT: She is morbidly obese. She is alert and oriented x3 with no acute distress. NECK: Supple. No thyromegaly or masses. LUNGS: Clear to auscultation. HEART: Regular rate and rhythm. S1 and S2 heart sounds. No murmurs, rubs, or gallops. BREASTS: Show no masses, nipple discharge or skin changes. ABDOMEN: She had a well-healed vertical midline incision. PELVIC: Vulva vagina had no lesions. Cervix had no lesions. Uterus enlarged, tender on palpation 12-14 week size. Adnexa nontender with no masses. EXTREMITIES: Showed full range of motion. ASSESSMENT: This is a 44-year-old female G3, P3, prior x3 with tubal ligation with long history of menorrhagia and dysmenorrhea. Clinically, she has endometriosis of the uterus. She also has obstructive sleep apnea, chronic hypertension. PLAN: Plan is to proceed with total laparoscopic hysterectomy with bilateral salpingectomy. Plan for ovarian preservation as long as ovaries are normal. Also may need to remove the specimen through the ExCITE procedure. Risks and benefits of procedure had been discussed in detail. She is set for surgery on 09/21. Job ID: [id number]
[2019-09-21] MEDS ORDERED: Famotidine/PF 20 mg/2ml Vial ONE (07:10)
[2019-09-21] MEDS ORDERED: Gabapentin 300 MG CAP ONE (07:10)
[2019-09-21] MEDS ORDERED: CeleCOXIB 100 MG CAP ONE (07:11)
[2019-09-21] MEDS ORDERED: Fentanyl 100 MCG/2 ML VIAL ONE ×4 (09:55→14:35)
[2019-09-21] MEDS ORDERED: Rocuronium Bromide 10 MG/ML (10ML VIAL) ONE (09:57)
[2019-09-21] MEDS ORDERED: Ondansetron PF 4 MG/2 ML Vial ONE (09:57)
[2019-09-21] MEDS ORDERED: PROPOFOL 200 MG/20 ML VIAL ONE (09:57)
[2019-09-21] MEDS ORDERED: Dexamethasone 20 MG/5 ML VIAL ONE (09:57)
[2019-09-21] MEDS ORDERED: Lidocaine 1% w/Epinephrine 1:100K 20 ML VIAL ONE (10:03)
[2019-09-21] MEDS ORDERED: Bupivacaine PF 0.5% 30 ML VIAL ONE (10:03)
[2019-09-21] MEDS ORDERED: Midazolam HCl 2 mg/2 ml Vial ONE (10:18)
[2019-09-21] MEDS ORDERED: Labetalol HCl 100 MG/20 ML VIAL SLOW IVP SCH (13:15)
[2019-09-21] MEDS ORDERED: hydrALAZINE 20 MG/ML VIAL ONE (13:47)
--- NOTE | 2019-09-21 14:23 | OP ---
DATE OF PROCEDURE: 09/21/2019 PREOPERATIVE DIAGNOSES: 1. A 44-year-old female, G3, P3 with 3 sections and tubal ligation with menorrhagia and dysmenorrhea, unresponsive to medical management. 2. Adenomyosis of the uterus. POSTOPERATIVE DIAGNOSES: 1. A 44-year-old female, G3, P3 with 3 sections and tubal ligation with menorrhagia and dysmenorrhea, unresponsive to medical management. 2. Adenomyosis of the uterus. PROCEDURES PERFORMED: Robotic total laparoscopic hysterectomy and bilateral salpingectomy. AIR MOTOR REPAIRER SURGEON: Zaria Braun MD ANESTHESIA: General endotracheal. ESTIMATED BLOOD LOSS: 25 mL. COMPLICATIONS: None. COUNTS: Correct x2. ANTIBIOTICS: 2 g Ancef, on-call to the OR. FINDINGS: 1. Normal-appearing ovaries with tubes, status post tubal ligation. 2. Globularly enlarged uterus consistent with adenomyosis. 3. Clear urine present in Escobar catheter postprocedure and bladder, watertight to distention greater than 300 mL intermittently throughout procedure. DISPOSITION: Recovery room, stable. DESCRIPTION OF PROCEDURE: The patient previously received informed consent in regard to surgery. She was taken back to the operating room, where she received a general endotracheal anesthetic agent without complications. She was placed in dorsal lithotomy position with Killian stirrups and prepped and draped in usual sterile fashion. A side-arm speculum was placed in the vagina as Escobar catheter had been placed and the cervix was grasped with a single-tooth tenaculum. The uterus sounded to 9 cm. A size 8-cm FRANNY uterine manipulator with a 4.0 cm cervical cup was placed. Tenaculum and speculum were removed. Attention was then turned to the abdomen, where perspective trocar sites were infiltrated with 0.5% Marcaine with epinephrine. A 12-mm supraumbilical incision was made. Veress needle was entered into the peritoneal cavity. The patient's pressure was noted to be less than 5 mm. Abdomen was insufflated with the patient's pressure of 15 approximately 5 L of carbon dioxide gas. The Veress needle was then removed and a size 12-mm trocar was placed. The robotic laparoscope introduced through the trocar sleeve confirming proper entry. Additional bilateral lower quadrant 8-mm trocars were placed along with the right upper quadrant 11-mm preschool assistant port. A 5-mm camera was placed in the right lower quadrant port prior to placement in the left lower quadrant trocar for better visualization due to some omental adhesions. After trocars have been placed, the patient was placed in more deep Trendelenburg and the robot was docked in usual sterile fashion. I then broke scrub and then proceeded to carry out the procedure from the operative console while my assistants remained at the bedside. The uterus was elevated from the pelvis. My preschool assistant grasped the fallopian tube on the left side. Bipolar fenestrated cautery was then utilized to coagulate through the mesosalpinx of the left tube and then it was excised with monopolar scissors and brought out through the right upper quadrant preschool assistant port. The left utero-ovarian ligament was coagulated and transected. Serial coagulation of broad ligament hugging close to uterus was carried out until the left round ligament was reached. It was coagulated and transected and the anterior leaf of the broad ligament was entered and the vesicouterine peritoneum was opened on the lateral side. There was some dense adhesions of the bladder from the previous section sites and these were taken down in layering technique while intermittently distending the bladder to confirm the location and to avoid damage to the bladder. Once we had taken down the bladder sufficiently from the left side, the uterine vessels were skeletonized and dropped in the peritoneum lateral, though this was dissected towards the pelvic sidewall. There was a dense adhesion in the midline lower uterine segment of the abdominal wall and this were also incised. Bladder had been distended during this to confirm its position and avoidance of injury to it during this process. Then, the right fallopian tube was grasped by my preschool assistant. Again, the mesosalpinx was coagulated and transected. The right utero-ovarian ligament was then coagulated and transected. Again, the right round ligament was reached. It was coagulated and transected. Again, the anterior leaf of the broad ligament was entered. The vesicouterine peritoneum continued to be dissected sharply and bluntly with intermittent distention of the bladder to confirm its position and this aided in getting the right plane to dissect the bladder both sharply and bluntly past the cervical vaginal angle. Once this was accomplished, the right uterine vessels were also skeletonized and then coagulated in the internal cervical os region. With the bladder being dissected past the cervical vaginal angle, we then proceeded to carry out the anterior colpotomy. This was started from 12 o'clock to 3 o'clock and 12 o'clock to 9 o'clock position. The uterine vessels on the sides were coagulated during this process. The posterior colpotomy was then completed from 6 o'clock to 9 o'clock and 6 o'clock to 3 o'clock. The specimen was then delivered into the vaginal vault. The monopolar scissor was then exchanged for a Saul needle sales route driver. There was an arterial bleeder noted in the right vaginal angle that was grasped with a Saul needle sales route driver and then this was isolated and then it was coagulated with bipolar fenestrated cautery. This secured hemostasis. The remainder of the vaginal cuff was coagulated and securing hemostasis. Then, Stratafix suture was then brought into the field by my preschool assistant and I closed the vaginal cuff in a full-thickness closure starting from the right angle towards the left angle and back towards the midline, closing the vaginal cuff and securing hemostasis. The excess suture and needle were then removed through the right upper quadrant port. The pelvis again was irrigated and suctioned. All pedicle sites were inspected and noted to be hemostatic. The bladder was re-distended and noted to be intact to watertight to over 300 mL distention. Clear urine was draining from the Escobar catheter. We then undocked the robot. The trocar sleeves were removed. A deep stitch of 0 Vicryl in a [id number] stitch fashion was placed in the supraumbilical incision port and then the remainder of the trocar sites were closed with 4-0 Monocryl suture with Dermabond. A sponge stick was entered into the vaginal vault and hemostasis of the vagina was confirmed. The patient was awakened from anesthesia, transferred to recovery room in stable condition. Job ID: [id number]
[2019-09-21] MEDS ORDERED: Labetalol HCl 100 MG/20 ML VIAL ONE (14:45)
[2019-09-21] MEDS ORDERED: HYDROmorphone 2 MG/ML VIAL ONE (14:45)
[2019-09-21] MEDS ORDERED: Ondansetron PF 4 MG/2 ML Vial IVP PRN (16:27)
[2019-09-21] MEDS ORDERED: Promethazine HCl 25 MG/ML VIAL IM PRN (16:27)
[2019-09-21] MEDS ORDERED: traMADol HCl 50 MG TAB PO PRN (16:27)
[2019-09-21] MEDS ORDERED: diphenhydrAMINE 25 MG CAP PO PRN (16:27)
[2019-09-21] MEDS ORDERED: Zolpidem Tartrate 5 MG TAB PO PRN (16:27)
[2019-09-21] MEDS ORDERED: Bisacodyl 10 MG SUPP PR PRN (16:27)
[2019-09-21] MEDS ORDERED: Simethicone Chewable 80 MG TAB PO PRN (16:27)
[2019-09-21] MEDS ORDERED: Amlodipine 10 MG TAB PO SCH (17:30)
[2019-09-21] MEDS: Acetaminophen 1,000 MG in Premix Bag 1 BAG IVPB SCH (17:40)
[2019-09-21] MEDS: Lactated Ringer's 1,000 ML IV SCH ×3 (17:40→23:13)
[2019-09-21] MEDS: Ketorolac Tromethamine 30 MG/ML VIAL IVP SCH (17:41)
[2019-09-21] MEDS: traMADol HCl 50 MG TAB PO PRN (20:20)
[2019-09-22] MEDS: Ketorolac Tromethamine 30 MG/ML VIAL IVP SCH ×2 (00:46→06:50)
[2019-09-22] MEDS: Acetaminophen 1,000 MG in Premix Bag 1 BAG IVPB SCH ×2 (00:50→06:54)
[2019-09-22] MEDS: traMADol HCl 50 MG TAB PO PRN ×2 (04:43→10:18)
[2019-09-22 04:53] LABS: Hemoglobin 10.8 g/dL (12.0-16.0); Mean Corpuscular HGB CONC 31.6 g/dL (32.0-36.0); Mean Corpuscular Volume 72.9 fL (78.0-98.0); Mean Platelet Volume 7.3 fL (7.4-10.4); Platelet Count 353 thou/uL (130-400); RBC Distribution Width 15.1 % (11.5-14.5); Red Blood Cell (RBC) Count 4.71 mill/uL (4.20-5.40); White Blood Cell (WBC) Count 9.6 thou/uL (4.8-10.8)
[2019-09-22] MEDS: Lactated Ringer's 1,000 ML IV SCH (06:49)
--- NOTE | 2019-09-22 08:03 | PDOC.EVN ---
Event Note - Event Note Event Note: Tolerating diet. No nausea...+flatus... O:Afebrile.VSS...HCT 34% Abdomen-soft/non distended.Trochar sites C/D/I A/P: Post op day 1 from robotic TLH....Discharge home. F/u in 2 and 6 weeks.
[2019-09-22 08:26] VITALS: BP 181/92; TEMP 98.4
[2019-09-22] MEDS ORDERED: Amlodipine 10 MG TAB PO SCH (09:00)
[2019-09-22] MEDS ORDERED: FLU VACC QS2019-20(6MOS UP)/PF 60 MCG/0.5 ML SYRINGE IM ONE (09:00)
--- NOTE | 2019-09-22 09:44 | DIS ---
DATE OF ADMISSION: 09/21/2019 DATE OF DISCHARGE: 09/22/2019 DIAGNOSES: 1. Adenomyosis of the uterus. 2. Menorrhagia. 3. Dysmenorrhea. 4. Chronic pelvic pain. PROCEDURES PERFORMED: Robotic total laparoscopic hysterectomy with bilateral salpingectomy. SUMMARY OF HOSPITAL COURSE: Ms. Amado is a 44-year-old female with prior x3 and tubal ligation, had progressively severe menorrhagia with anemia in the past and noted severe dysmenorrhea and pelvic pain that was unresponsive to medical management trials. Suspected adenomyosis of the uterus and she underwent robotic TLH with bilateral salpingectomy on 09/21. Postoperatively, the patient has done well. Her vital signs have remained stable. Hematocrit 34% postop day #1. She is ambulating, voiding, and tolerating a regular diet without difficulty. She was discharged postop day #1 and she will have a followup schedule in 2 and 6 weeks. Pathology will follow up when is available. Discharge pain medications will be tramadol 50 mg q.6 hours and [id number] ibuprofen as directed. Job ID: [id number]
[2019-09-22] MEDS ORDERED: Acetaminophen 325 MG TAB PO PRN (12:00)
[2019-09-27] MEDS ORDERED: Ibuprofen 800 MG TAB PO SCH (09:00)
== END 2019-09-22 11:01 | disposition home or self-care (01) ==
LOC: SDC 06:48 → 3SE 16:12 → EEVIPCON 16:15 → 3SE 16:39 → SDC 16:39
PROVIDERS: ADMIT Obstetrics & Gynecology; ATTEND Obstetrics & Gynecology
PROC: 0UT94ZZ Resection of Uterus, Percutaneous Endoscopic Approach (ICD-10-PCS; principal; 2019-09-21)
PROC: 0UT74ZZ Resection of Bilateral Fallopian Tubes, Percutaneous Endoscopic Approach (ICD-10-PCS; 2019-09-21)
DX: N80.0 Endometriosis of uterus (principal); D25.9 Leiomyoma of uterus, unspecified; N72 Inflammatory disease of cervix uteri; I10 Essential (primary) hypertension; F32.9 Major depressive disorder, single episode, unspecified; G47.33 Obstructive sleep apnea (adult) (pediatric); F17.200 Nicotine dependence, unspecified, uncomplicated; Z79.899 Other long term (current) drug therapy; Z88.5 Allergy status to narcotic agent; Z99.89 Dependence on other enabling machines and devices
CPT/HCPCS: 36415; 85027; 88307; 96361; 96374; 96375; 96376; G0378; J0131; J0360; J0690; J1100; J1170; J1885; J2250; J2405; J2704; J3010; S0020; S0028